=== PATIENT | female | born 1975 | race Caucasian/White ===

== ENCOUNTER 2018-06-14 02:28 | Inpatient (IN) | payer BC ==
[2018-06-14] MEDS ORDERED: Lactated Ringers 1000 ML Bag* 1,000 ML IV ONE (03:26)
[2018-06-14] MEDS ORDERED: ceFAZolin 2 GM PREMIX in ORs 2 GM/50 ML BAG IVPB ONE (03:26)
[2018-06-14 03:34] LABS: ABS Basophils 0.1 10^3/ul (0-0.2); ABS Eosinophils 0.1 10^3/ul (0-0.6); ABS Lymphocytes 1.5 10^3/ul (1.0-4.8); ABS Monocytes 0.5 10^3/ul (0-0.8); ABS Neutrophils 4.5 10^3/ul (1.5-7.7); ABS Nucleated RBC 0 10^3/ul; Eosinophil % 2.1 %; Hematocrit 36 % (35-47); Hemoglobin 12.3 g/dl (12.0-16.0); Lymphocyte % 22.3 %; Mean Corpuscular HGB Conc 34 g/dl (31-36); Mean Corpuscular Hemoglobin 31 pg (27-31); Mean Corpuscular Volume 90 fL (80-97); Nucleated Red Blood Cells % 0; Platelet Count 177 10^3/ul (150-450); Red Blood Count 4.04 10^6/ul (4.00-5.40); Red Cell Distribution Width 12 % (10.5-15); White Blood Count 6.7 10^3/ul (3.5-10.8)
--- NOTE | 2018-06-14 03:37 | HP ---
General Information - Reason for Visit Patient has experience contractions becoming more frequent since evening yesterday. Was woken from sleep. In past hour began having significant leaking of clear fluid with movement and pink spotting. - General Information Maternal Age: 42 Grav: 5 Para: 2 SAB: 2 IEA: 0 Estimated Due Date: 06/24/18 Determined By: Early Ultrasound Maternal Blood Type and Rh: O Positive - Results this Serology/RPR Result: Non-Reactive Rubella Result: Immune HBsAg Result: Negative HIV Result: Negative GBS Culture Result: Positive Past Medical History Delivery History: Hx Uncomplicated Vaginal Delivery Delivery History Comment: SVB X 2: 2008, 2010 Pertinent Past Medical History: See Records Past Medical History Comment: Ulcerative colitis Pertinent Past Surgical History: See Records Past Surgical History Comment: Lav ovarian cystectomy Pertinent Family History: Non-Contributory Family History Comment: Lung ca Stroke [place] Uterine ca - Antepartal Records Antepartal Records: Reviewed, Uncomplicated Review of Systems Constitutional: Uncomfortable CV Complaint: No Respiratory: Shortness of Breath: No Gastrointestinal: No Nausea/Vomiting, Normal Bowel Movement Genitourinary: Leaking Fluid, Spotting Musculoskeletal: Contractions Neurological: No Headache, No Visual Changes Movement: Normal Exam Allergies/Adverse Reactions: Allergies amoxicillin Allergy (Verified 06/14/18 03:23) Rash egg Allergy (Verified 06/14/18 03:27) Stomach Cramps wheat Allergy (Verified 06/14/18 03:27) Rash And Itching BP 115/72 HR 90 T 98.5 RR 16 O2 100 - Measurements Height: 5 ft 3 in Weight: 127 lb Weight in lbs: 127.862622 Body Mass Index (BMI): 22.4 Pre- Weight: 112 lb Weight Gained This : 15 lbs and 0 ozs - Exam Breast: Breast Exam Deferred CVA: No CVA Tenderness Extremities: No Edema Heart: Normal Rhythm/Heart Sounds HEENT: No Significant Findings Lungs: Clear Bilaterally Rectal: Rectal Exam Deferred Reflexes: - - Not elicited, no clonus Thyroid: - - WNL @ entry to care - Abdominal Exam Abdomen Exam: Non-Tender, Fundal Height Consistent with Dates - Ultrasound/Biophysical Profile Ultrasound Status: Not Done Targeted Exam Findings See L&D Outpatient Visit Provider Note for Findings: N/A Estimated Weight: 6.5-7lb Cervical Exam: 2cm Effacement: 80% Station: -1 Presenting Part: Vertex Membrane Status: Leaking Amniotic Fluid Evaluation: Gross Rupture Bleeding/Discharge: Bloody Show EFM Findings - External Monitor Findings Baseline Heart Rate: 130 External Monitor Findings: Accelerations Present, No Pattern of Variable or Late Decelerations, Variability Moderate Contractions: Regular, Moderate, 45-90 Seconds Contraction Frequency: Q2-4 min Assessment/Plan - Assessment 42 yo with IUP @ 38+4 weeks gestation with rupture of membranes in early labor. GBS positive. No evidence acidemia - Obstetrical Risk Factors Obstetrical Risk Factors: GBS Positive - Plan Plan: Antibiotic Prophylaxis, Admit - Anticipate Vaginal Delivery Plan Comment: Admit to L&D, initiate Cefazolin for GBS prophylaxis due to hx PCN allergy. Has taken cephalosporin in past without reaction. Anticipate SVB. - Date/Time of Admission Date of Admission: 06/14/18 Time of Admission: 03:13
[2018-06-14] MEDS ORDERED: Lactated Ringers 1000 ML Bag* 1,000 ML IV SCH ×2 (04:00→15:00)
--- NOTE | 2018-06-14 07:12 | PN ---
Progress Note - Progress Note Date of Service: 06/14/18 SOAP: Subjective: [Patient slept for several hours, contractions slowed. Woke to stronger contractions. Still having bloody show and gushes of fluid with movement and contractions.] Objective: [VE deferred VSS, afebrile UCs had slowed, now approx Q 2-4 min FHT 125 doppler] Assessment: [IUP in early labor GBS positive No evidence acidemia] Plan: [Counseled re recommendation for induction/augmentation. Discussed pitocin, patient verbalized understanding. Expectant management for now, anticipate SVB. Report given to oncoming cartographic engineer MM and SHANNA.]
[2018-06-14] MEDS ORDERED: ceFAZolin 1 GM* Q8H (AddVan) IVPB SCH ×2 (12:00)
[2018-06-14] MEDS ORDERED: ceFAZolin 1 GM VIAL(*) 1 GM in NS 0.9% 50 ML* 50 ML IVPB SCH (12:00)
[2018-06-14] MEDS ORDERED: Oxytocin in LR* 20 UNITS/1,000 ML BAG IVPB ONE (12:40)
[2018-06-14] MEDS ORDERED: Witch Hazel PAD* JAR ONE (13:48)
[2018-06-14] MEDS ORDERED: Dibucaine 1% 28.35 GM TUBE ONE (13:48)
[2018-06-14] MEDS ORDERED: Acetaminophen TAB* 325 MG PO PRN (14:17)
[2018-06-14] MEDS ORDERED: Dibucaine 1% 28.35 GM TUBE PR PRN (14:17)
[2018-06-14] MEDS ORDERED: Witch Hazel PAD* JAR TOPICAL PRN (14:17)
[2018-06-14] MEDS ORDERED: Glycerin ADULT SUPP PR PRN (14:17)
--- NOTE | 2018-06-14 14:39 | PROCNOTE ---
[facility] OB: Delivery Note - Delivery A Date of : 06/14/18 Time of : 13:36 [place] Sex: Female Score 1 Minute: 8 Score 5 Minutes: 9 Gestational Age in Weeks and Days at Delivery: 38 Weeks and 4 Days Delivery Method: Spontaneous Vaginal Labor: Spontaneous Did Patient attempt ?: N/A, No Previous Amniotic Fluid: Clear Estimated Blood Loss: 350 Anesthesia/Analgesia: None Delivered By: [facility] Nurs[facility] Level of Nursery: Regular/Bedside - Perineum Perineal Injury: None/Intact - Events Delivery Events of Note: Pitocin Only After Delivery, Full Course of Antibiotics - Additional Delivery Notes Additional Delivery Notes: Pt admitted at 38+4 for SROM at 130, clear fluid. Pt progressed to active labor at 0730. GBS+, pt with 2 doses of Cefazolin d/t PCn allergy. Pt remained afebrile throughout labor. Length of labor 5 hours 48 minutes, pt pushed x18 minutes. Strong maternal pushing effort led to @1336. OA to SHELIA, shoulders followed easily, nuchal x1 reduced on perineum. vigorous with spontaneous cry, heartbeat >110 BPM. Delivered to maternal abdomen. Cord clamped x2 and cut by FOB. Spontaneous delivery of intact placenta, membranes complete. Fundus firm to massage with IV pitocin infusing. Minimal bleeding noted, EBL 350 mL. Careful inspection revealed an intact perineum. At time of note, mother and in stable condition. Baby at the breast, well.
[2018-06-14] MEDS ORDERED: Oxytocin in LR* 20 UNITS/1,000 ML BAG IVPB SCH (15:00)
[2018-06-14] MEDS ORDERED: Simethicone TAB* 80 MG TAB.CHEW PO SCH (17:30)
[2018-06-14] MEDS: Docusate CAP* 100 MG PO SCH (20:19)
[2018-06-15 05:54] LABS: ABS Basophils 0 10^3/ul (0-0.2); ABS Eosinophils 0.1 10^3/ul (0-0.6); ABS Lymphocytes 1.6 10^3/ul (1.0-4.8); ABS Monocytes 0.6 10^3/ul (0-0.8); ABS Neutrophils 8.2 10^3/ul (1.5-7.7); ABS Nucleated RBC 0 10^3/ul; Eosinophil % 0.9 %; Hematocrit 37 % (35-47); Hemoglobin 12.7 g/dl (12.0-16.0); Lymphocyte % 15.3 %; Mean Corpuscular HGB Conc 34 g/dl (31-36); Mean Corpuscular Hemoglobin 30 pg (27-31); Mean Corpuscular Volume 89 fL (80-97); Mean Platelet Volume 9.2 fL (7.4-10.4); Nucleated Red Blood Cells % 0; Platelet Count 188 10^3/ul (150-450); Red Cell Distribution Width 13 % (10.5-15); White Blood Count 10.5 10^3/ul (3.5-10.8)
[2018-06-15] MEDS: Docusate CAP* 100 MG PO SCH (09:55)
[2018-06-15] MEDS: Ferrous Gluconate TAB* 324 MG TAB PO SCH (09:58)
[2018-06-16 08:06] VITALS: BP 105/62
[2018-06-16] MEDS: Docusate CAP* 100 MG PO SCH (08:23)
[2018-06-16] MEDS: Ferrous Gluconate TAB* 324 MG TAB PO SCH (08:23)
== END 2018-06-16 10:56 | disposition home or self-care (01) | DRG 560 ==
LOC: MCHOBOUT 02:28 → MCHOB 03:13
PROVIDERS: ADMIT Midwife; ATTEND Advanced Practice Midwife
PROC: 10E0XZZ Delivery of Products of Conception, External Approach (ICD-10-PCS; principal; 2018-06-14)
DX: O42.02 Full-term premature rupture of membranes, onset of labor within 24 hours of rupture (principal); Z37.0 Single live birth; O99.824 Streptococcus B carrier state complicating childbirth; O69.81X0 Labor and delivery complicated by cord around neck, without compression, not applicable or unspecified; Z3A.38 38 weeks gestation of pregnancy
CPT/HCPCS: 36415; 85025; 86850; 86900; 86901; 90686; A9270-GY; J0690